=== PATIENT | male | born 1970 | race Caucasian/White ===

== ENCOUNTER 2020-01-26 17:08 | Inpatient (IN) | payer OTHER, MEDICAID, SELFPAY ==
[~2020-01-26] VITALS: Ht 182.9 cm; Wt 74.6 kg
[2020-01-26 17:41] VITALS: BP_SYST 148
[2020-01-26 18:21] LABS: BASOPHILS # (AUTO) 0.1 K/uL (0.0-0.2); BASOPHILS % (AUTO) 0.6 % (0.0-2.0); EOSINOPHILS # (AUTO) 0.3 K/uL (0.0-0.4); EOSINOPHILS % (AUTO) 3.7 % (0.0-4.0); HEMATOCRIT 36.3 % (36-54); HEMOGLOBIN 12.5 g/dL (14.0-18.0); LYMPHOCYTES # (AUTO) 2.3 K/uL (1.0-5.5); LYMPHOCYTES % (AUTO) 26.8 % (20.5-51.5); MEAN CORPUSCULAR HEMOGLOBIN 33 pg (27-31); MEAN CORPUSCULAR HGB CONC 35 % (32-36); MEAN CORPUSCULAR VOLUME 95 fL (79.0-98.0); MONOCYTES # (AUTO) 0.7 K/uL (0.0-1.0); MONOCYTES % (AUTO) 7.5 % (1.7-9.3); NEUTROPHILS # (AUTO) 5.4 K/uL (1.8-7.7); NEUTROPHILS % (AUTO) 61.4 % (40.0-70.0); PLATELET COUNT (AUTO) 199 K/uL (130-430); RED BLOOD CELL COUNT(AUTO) 3.84 MIL/uL (4.2-6.2); RED CELL DISTRIBUTION WIDTH 14.1 % (9.0-15.0); WHITE BLOOD COUNT (AUTO) 8.8 K/uL (4.8-10.8)
[2020-01-26 18:35] LABS: CALCIUM 8.2 mg/dL (8.4-11.0); CREATININE 0.76 mg/dL (0.55-1.30)
[2020-01-26 18:41] LABS: ALBUMIN 3.4 g/dL (3.4-4.8); TOTAL BILIRUBIN 0.5 mg/dL (0.0-1.0)
[2020-01-26] MEDS ORDERED: DIVA500T4 PO ×2 (18:57→18:58)
[2020-01-26] MEDS ORDERED: SYN50 PO (18:57)
[2020-01-26] MEDS ORDERED: AMLO5TAB4 PO (18:57)
[2020-01-26] MEDS ORDERED: LEVE500T9 PO (18:57)
[2020-01-26] MEDS ORDERED: LORA-259 PO (18:58)
[2020-01-26] MEDS ORDERED: LITH300T PO (18:58)
[2020-01-26] MEDS ORDERED: LORA-258 PO (18:58)
[2020-01-26] MEDS ORDERED: OLAN15TA18 PO (19:00)
[2020-01-26] MEDS ORDERED: OLAN10TA19 PO (19:00)
[2020-01-26] MEDS ORDERED: NACL 0.9% 1,000 ML IV ONE (19:00)
[2020-01-26] MEDS: NACL 0.9% 1,000 ML IV SCH (19:32)
[2020-01-26] MEDS ORDERED: MAGNESIUM SULFATE 50 ML IV PRN (20:00)
[2020-01-26] MEDS ORDERED: MUPIROCIN 2% TOPICAL OINTMENT 22 GM NS PRN (20:00)
[2020-01-26] MEDS ORDERED: POTASSIUM CHLORIDE 20 MEQ TAB.PRT.SR PO PRN (20:00)
[2020-01-26] MEDS ORDERED: ONDANSETRON HCL 4 MG/2 ML VIAL IVP PRN (20:00)
[2020-01-26] MEDS ORDERED: LORazepam 2 MG/ML VIAL IVP PRN (20:00)
[2020-01-26] MEDS ORDERED: DOCUSATE SODIUM 100 MG CAPSULE PO PRN (20:00)
[2020-01-26] MEDS ORDERED: ACETAMINOPHEN 325 MG TABLET PO PRN (20:00)
[2020-01-26] MEDS ORDERED: ZOLPIDEM TARTRATE 5 MG TABLET PO PRN (20:00)
[2020-01-26 20:45] VITALS: BP_SYST 141
[2020-01-26] MEDS: LITHIUM CARBONATE 300 MG TABLET.SA PO SCH (20:47)
[2020-01-26] MEDS: levETIRAcetam 500 MG TABLET PO SCH (20:47)
[2020-01-26] MEDS: OLANZapine 5 MG TABLET PO SCH (20:48)
[2020-01-26] MEDS: HEPARIN SODIUM,PORCINE 5,000 UNITS/ML VIAL SUBCUT SCH (20:51)
[2020-01-26 20:54] LABS: THYROID STIMULATING HORMONE 0.55 uIu/mL (0.34-4.82)
[2020-01-26] MEDS: DIVALPROEX SODIUM 500 MG TAB.SR.24H (DEPAKOTE ER) PO SCH (20:57)
[2020-01-26 22:17] LABS: BILIRUBIN,URINE NEGATIVE (NEGATIVE); BLOOD, URINE NEGATIVE (NEGATIVE); CLARITY/URINE CLEAR (CLEAR); COLOR,URINE YELLOW (YELLOW); GLUCOSE,URINE NEGATIVE (NEGATIVE); KETONES,URINE NEGATIVE (NEGATIVE); LEUKOCYTE ESTERASE ,URINE NEGATIVE (NEGATIVE); NITRITE, URINE NEGATIVE (NEGATIVE); PROTEIN URINE NEGATIVE (NEGATIVE); UROBILINOGEN,URINE 0.2 (0.2-1.0)
[2020-01-27] VITALS (7 sets, daily range): BP systolic 103–172
[2020-01-27] MEDS: NACL 0.9% 1,000 ML IV SCH (05:09)
[2020-01-27] MEDS: LEVOTHYROXINE SODIUM 0.05 MG TABLET PO SCH (06:06)
[2020-01-27 06:33] LABS: BASOPHILS # (AUTO) 0.1 K/uL (0.0-0.2); EOSINOPHILS # (AUTO) 0.2 K/uL (0.0-0.4); HEMATOCRIT 39.3 % (36-54); HEMOGLOBIN 13.3 g/dL (14.0-18.0); LYMPHOCYTES # (AUTO) 1.6 K/uL (1.0-5.5); LYMPHOCYTES % (AUTO) 30.2 % (20.5-51.5); MEAN CORPUSCULAR HEMOGLOBIN 33 pg (27-31); MEAN CORPUSCULAR HGB CONC 34 % (32-36); MEAN CORPUSCULAR VOLUME 96 fL (79.0-98.0); MONOCYTES # (AUTO) 0.6 K/uL (0.0-1.0); MONOCYTES % (AUTO) 12.1 % (1.7-9.3); NEUTROPHILS # (AUTO) 2.8 K/uL (1.8-7.7); NEUTROPHILS % (AUTO) 53.7 % (40.0-70.0); PLATELET COUNT (AUTO) 215 K/uL (130-430); RED BLOOD CELL COUNT(AUTO) 4.11 MIL/uL (4.2-6.2); RED CELL DISTRIBUTION WIDTH 14.2 % (9.0-15.0)
[2020-01-27 06:38] LABS: WHITE BLOOD COUNT (AUTO) 5.1 K/uL (4.8-10.8)
[2020-01-27 07:08] LABS: CALCIUM 8.3 mg/dL (8.4-11.0); CREATININE 0.74 mg/dL (0.55-1.30)
[2020-01-27] MEDS: LITHIUM CARBONATE 300 MG TABLET.SA PO SCH ×2 (08:52→20:53)
[2020-01-27] MEDS: levETIRAcetam 500 MG TABLET PO SCH ×2 (08:52→20:53)
[2020-01-27] MEDS: OLANZapine 10 MG TABLET PO SCH (08:52)
[2020-01-27] MEDS: amLODIPine BESYLATE 5 MG TABLET PO SCH (08:53)
[2020-01-27] MEDS: HEPARIN SODIUM,PORCINE 5,000 UNITS/ML VIAL SUBCUT SCH ×2 (08:57→20:54)
[2020-01-27] MEDS ORDERED: 0.45% NACL 1,000 ML IV SCH (11:15)
[2020-01-27 13:15] LABS: LITHIUM 0.5 mEq/L (0.50-1.0)
[2020-01-27] MEDS: DIVALPROEX SODIUM 500 MG TAB.SR.24H (DEPAKOTE ER) PO SCH (20:53)
[2020-01-27] MEDS: OLANZapine 5 MG TABLET PO SCH (20:53)
[2020-01-28] VITALS: BP_SYST 132
[2020-01-28] MEDS: LEVOTHYROXINE SODIUM 0.05 MG TABLET PO SCH (06:26)
[2020-01-28 06:40] LABS: BASOPHILS # (AUTO) 0.1 K/uL (0.0-0.2); EOSINOPHILS # (AUTO) 0.2 K/uL (0.0-0.4); EOSINOPHILS % (AUTO) 3.6 % (0.0-4.0); HEMATOCRIT 37.4 % (36-54); HEMOGLOBIN 12.7 g/dL (14.0-18.0); LYMPHOCYTES # (AUTO) 2.3 K/uL (1.0-5.5); LYMPHOCYTES % (AUTO) 33.3 % (20.5-51.5); MEAN CORPUSCULAR HEMOGLOBIN 33 pg (27-31); MEAN CORPUSCULAR HGB CONC 34 % (32-36); MEAN CORPUSCULAR VOLUME 96 fL (79.0-98.0); MONOCYTES # (AUTO) 0.5 K/uL (0.0-1.0); MONOCYTES % (AUTO) 7.9 % (1.7-9.3); NEUTROPHILS # (AUTO) 3.7 K/uL (1.8-7.7); NEUTROPHILS % (AUTO) 54.2 % (40.0-70.0); PLATELET COUNT (AUTO) 195 K/uL (130-430); RED BLOOD CELL COUNT(AUTO) 3.89 MIL/uL (4.2-6.2); RED CELL DISTRIBUTION WIDTH 14.4 % (9.0-15.0); WHITE BLOOD COUNT (AUTO) 6.9 K/uL (4.8-10.8)
[2020-01-28 06:46] LABS: CALCIUM 8.8 mg/dL (8.4-11.0); CREATININE 0.75 mg/dL (0.55-1.30); POTASSIUM 4.6 mmol/L (3.5-5.1)
[2020-01-28 08:25] VITALS: BP_SYST 155
[2020-01-28] MEDS: OLANZapine 10 MG TABLET PO SCH (08:54)
[2020-01-28] MEDS: LITHIUM CARBONATE 300 MG TABLET.SA PO SCH ×2 (08:54→20:56)
[2020-01-28] MEDS: levETIRAcetam 500 MG TABLET PO SCH ×2 (08:54→20:56)
[2020-01-28] MEDS: amLODIPine BESYLATE 5 MG TABLET PO SCH (08:55)
[2020-01-28] MEDS: HEPARIN SODIUM,PORCINE 5,000 UNITS/ML VIAL SUBCUT SCH ×2 (08:55→20:57)
[2020-01-28 12:19] VITALS: BP_SYST 131
[2020-01-28 16:22] VITALS: BP_SYST 129
[2020-01-28 20:00] VITALS: BP_SYST 119
[2020-01-28] MEDS: DIVALPROEX SODIUM 500 MG TAB.SR.24H (DEPAKOTE ER) PO SCH (20:56)
[2020-01-28] MEDS: OLANZapine 5 MG TABLET PO SCH (20:56)
[2020-01-29] VITALS: BP_SYST 116
[2020-01-29] MEDS: LEVOTHYROXINE SODIUM 0.05 MG TABLET PO SCH (06:07)
[2020-01-29 06:47] LABS: BASOPHILS # (AUTO) 0.1 K/uL (0.0-0.2); BASOPHILS % (AUTO) 0.8 % (0.0-2.0); EOSINOPHILS # (AUTO) 0.3 K/uL (0.0-0.4); EOSINOPHILS % (AUTO) 4.3 % (0.0-4.0); HEMATOCRIT 39.3 % (36-54); HEMOGLOBIN 13.1 g/dL (14.0-18.0); LYMPHOCYTES # (AUTO) 2.4 K/uL (1.0-5.5); MEAN CORPUSCULAR HEMOGLOBIN 32 pg (27-31); MEAN CORPUSCULAR HGB CONC 33 % (32-36); MEAN CORPUSCULAR VOLUME 96 fL (79.0-98.0); MONOCYTES # (AUTO) 0.5 K/uL (0.0-1.0); NEUTROPHILS # (AUTO) 3.9 K/uL (1.8-7.7); NEUTROPHILS % (AUTO) 54.9 % (40.0-70.0); PLATELET COUNT (AUTO) 203 K/uL (130-430); RED BLOOD CELL COUNT(AUTO) 4.07 MIL/uL (4.2-6.2); RED CELL DISTRIBUTION WIDTH 14.6 % (9.0-15.0); WHITE BLOOD COUNT (AUTO) 7.2 K/uL (4.8-10.8)
[2020-01-29 07:05] LABS: CALCIUM 8.9 mg/dL (8.4-11.0); CHLORIDE 103 mmol/L (98-107); CREATININE 0.74 mg/dL (0.55-1.30); GLUCOSE 80 mg/dL (70-99); SODIUM SERUM 135 mmol/L (136-145); UREA NITROGEN, BLOOD 11 mg/dL (8-21)
[2020-01-29 07:24] LABS: ANION GAP < 3 (5-15); GFR AFRICAN AMERICAN 144 mL/min (>90)
[2020-01-29 08:20] VITALS: BP_SYST 112
[2020-01-29] MEDS: levETIRAcetam 500 MG TABLET PO SCH ×2 (09:37→20:11)
[2020-01-29] MEDS: OLANZapine 10 MG TABLET PO SCH (09:38)
[2020-01-29] MEDS: amLODIPine BESYLATE 5 MG TABLET PO SCH (09:38)
[2020-01-29] MEDS: LITHIUM CARBONATE 300 MG TABLET.SA PO SCH ×2 (09:39→20:12)
[2020-01-29] MEDS: HEPARIN SODIUM,PORCINE 5,000 UNITS/ML VIAL SUBCUT SCH ×2 (09:41→20:13)
[2020-01-29 12:18] VITALS: BP_SYST 118
[2020-01-29 16:15] VITALS: BP_SYST 149
[2020-01-29 20:00] VITALS: BP_SYST 118
[2020-01-29] MEDS: DIVALPROEX SODIUM 500 MG TAB.SR.24H (DEPAKOTE ER) PO SCH (20:11)
[2020-01-29] MEDS: OLANZapine 5 MG TABLET PO SCH (20:15)
[2020-01-30 00:45] VITALS: BP_SYST 117
[2020-01-30] MEDS: LEVOTHYROXINE SODIUM 0.05 MG TABLET PO SCH (06:04)
[2020-01-30 07:07] LABS: BASOPHILS # (AUTO) 0.1 K/uL (0.0-0.2); EOSINOPHILS # (AUTO) 0.4 K/uL (0.0-0.4); EOSINOPHILS % (AUTO) 5.3 % (0.0-4.0); HEMATOCRIT 40.9 % (36-54); HEMOGLOBIN 13.8 g/dL (14.0-18.0); LYMPHOCYTES # (AUTO) 2.1 K/uL (1.0-5.5); LYMPHOCYTES % (AUTO) 27.7 % (20.5-51.5); MEAN CORPUSCULAR HEMOGLOBIN 32 pg (27-31); MEAN CORPUSCULAR HGB CONC 34 % (32-36); MEAN CORPUSCULAR VOLUME 96 fL (79.0-98.0); MONOCYTES # (AUTO) 0.6 K/uL (0.0-1.0); MONOCYTES % (AUTO) 7.3 % (1.7-9.3); NEUTROPHILS # (AUTO) 4.5 K/uL (1.8-7.7); NEUTROPHILS % (AUTO) 58.7 % (40.0-70.0); PLATELET COUNT (AUTO) 219 K/uL (130-430); RED BLOOD CELL COUNT(AUTO) 4.26 MIL/uL (4.2-6.2); RED CELL DISTRIBUTION WIDTH 14.4 % (9.0-15.0); WHITE BLOOD COUNT (AUTO) 7.7 K/uL (4.8-10.8)
[2020-01-30 08:10] VITALS: BP_SYST 117
[2020-01-30] MEDS: levETIRAcetam 500 MG TABLET PO SCH (08:48)
[2020-01-30] MEDS: LITHIUM CARBONATE 300 MG TABLET.SA PO SCH (08:48)
[2020-01-30] MEDS: OLANZapine 10 MG TABLET PO SCH (08:48)
[2020-01-30] MEDS: amLODIPine BESYLATE 5 MG TABLET PO SCH (08:49)
[2020-01-30] MEDS: HEPARIN SODIUM,PORCINE 5,000 UNITS/ML VIAL SUBCUT SCH (08:53)
[2020-01-30 09:20] LABS: CALCIUM 9.1 mg/dL (8.4-11.0); CREATININE 0.88 mg/dL (0.55-1.30)
[2020-01-30] MEDS ORDERED: SALT PO (10:37)
[2020-01-30 12:00] VITALS: BP_SYST 120; BP_SYST 126
[2020-01-30 14:20] VITALS: BP_SYST 126
[2020-01-30 15:54] VITALS: BP_SYST 121
== END 2020-01-30 19:30 | DRG 640 ==
LOC: SED 17:08 → STU 19:09
PROVIDERS: ADMIT General Practice; ATTEND General Practice
DX: E87.1 Hypo-osmolality and hyponatremia (principal); G93.41 Metabolic encephalopathy; F39 Unspecified mood [affective] disorder; E03.9 Hypothyroidism, unspecified; G40.909 Epilepsy, unspecified, not intractable, without status epilepticus; Z20.828 Contact with and (suspected) exposure to other viral communicable diseases; I10 Essential (primary) hypertension; Z59.0 Homelessness; F20.9 Schizophrenia, unspecified; Z88.2 Allergy status to sulfonamides; Z79.899 Other long term (current) drug therapy
CPT/HCPCS: 36415; 71045; 80048; 80053; 80164-TC; 80178-TC; 81003; 82533; 82550-TC; 83036; 83735-TC; 83880; 84443-TC; 84484; 85025; 87081; 93005; 96360; 99285; G0378; J1644; J7030

== ENCOUNTER 2020-12-07 23:49 | Emergency (ER) | payer OTHER, SELFPAY ==
[~2020-12-07] VITALS: Ht 182.9 cm; Wt 101.2 kg
[~2020-12-07 23:49] MED LIST: AMLO5TAB4 PO; DIVA500T4 PO; LEVE500T9 PO; LITH300T PO; LORA-258 PO; LORA-259 PO; OLAN10TA71 PO; OLAN15TA36 PO; SALT PO; SYN50 PO
[2020-12-07 23:56] VITALS: BP_SYST 138
--- NOTE | 2020-12-07 23:56 | NUR ---
Patient to [facility] for evaluation. Report given to JOANNA TOVAR
--- NOTE | 2020-12-08 | NUR ---
ER Dr. HENDRICKSON at bedside examining patient.
--- NOTE | 2020-12-08 | NUR ---
PATIENT SENT BY BLS FROM [facility] FOR MEDICAL CLEARANCE FOR PATIENT BEING AGGRESSIVE TO STAFF PRIOR TO GOING TO [facility] ROOM [id number]. AOX3. DENIES ANY PAIN.
--- NOTE | 2020-12-08 00:05 | NUR ---
BLOOD COLLECTED BY STOCK SPECULATOR
[2020-12-08 00:29] LABS: BASOPHILS # (AUTO) 0.1 K/uL (0.0-0.2); BASOPHILS % (AUTO) 0.6 % (0.0-2.0); EOSINOPHILS # (AUTO) 0.5 K/uL (0.0-0.4); EOSINOPHILS % (AUTO) 4.6 % (0.0-4.0); HEMATOCRIT 39.1 % (36-54); HEMOGLOBIN 13.6 g/dL (14.0-18.0); LYMPHOCYTES # (AUTO) 2.7 K/uL (1.0-5.5); LYMPHOCYTES % (AUTO) 26.1 % (20.5-51.5); MEAN CORPUSCULAR HEMOGLOBIN 33 pg (27-31); MEAN CORPUSCULAR HGB CONC 35 % (32-36); MEAN CORPUSCULAR VOLUME 94 fL (79.0-98.0); MONOCYTES % (AUTO) 9.9 % (1.7-9.3); NEUTROPHILS % (AUTO) 58.8 % (40.0-70.0); PLATELET COUNT (AUTO) 220 K/uL (130-430); RED BLOOD CELL COUNT(AUTO) 4.16 MIL/uL (4.2-6.2); RED CELL DISTRIBUTION WIDTH 13.1 % (9.0-15.0); WHITE BLOOD COUNT (AUTO) 10.2 K/uL (4.8-10.8)
--- NOTE | 2020-12-08 00:48 | NUR ---
URINE, COVID AND MRSA COLLECTED AND SENT TO LAB
[2020-12-08 01:01] LABS: POTASSIUM 4.2 mmol/L (3.5-5.1); SODIUM SERUM 128 mmol/L (136-145)
[2020-12-08 01:02] LABS: ALANINE AMINOTRANSFERASE 23 U/L (12-78); ALBUMIN 3.6 g/dL (3.4-4.8); ANION GAP 4 (5-15); ASPARTATE AMINOTRANSFERASE 9 U/L (10-37); CALCIUM 9.2 mg/dL (8.4-11.0); CHLORIDE 96 mmol/L (98-107); CREATININE 0.83 mg/dL (0.55-1.30); GFR AFRICAN AMERICAN 126 mL/min (>90); GLUCOSE 106 mg/dL (70-99); TOTAL BILIRUBIN 0.2 mg/dL (0.0-1.0); UREA NITROGEN, BLOOD 16 mg/dL (8-21)
[2020-12-08 01:11] LABS: BILIRUBIN,URINE NEGATIVE (NEGATIVE); BLOOD, URINE NEGATIVE (NEGATIVE); CLARITY/URINE CLEAR (CLEAR); COLOR,URINE YELLOW (YELLOW); GLUCOSE,URINE NEGATIVE (NEGATIVE); KETONES,URINE NEGATIVE (NEGATIVE); LEUKOCYTE ESTERASE ,URINE NEGATIVE (NEGATIVE); NITRITE, URINE NEGATIVE (NEGATIVE); PROTEIN URINE NEGATIVE (NEGATIVE); UROBILINOGEN,URINE 0.2 (0.2-1.0)
[2020-12-08 01:14] LABS: ACETAMINOPHEN 2 ug/mL (1-30); ALCOHOL, BLOOD < 3 mg/dL (<10)
[2020-12-08 01:26] LABS: BARBITURATE, URINE NEGATIVE (NEG <=200); BENZODIAZEPINE, URINE NEGATIVE (NEG <=150); CANNABINOID, URINE NEGATIVE (NEG <=50); COCAINE, URINE NEGATIVE (NEG <=150); METHAMPHETAMINES SCREEN,URINE NEGATIVE (NEG <=500); OPIATE, URINE NEGATIVE (NEG <=100); PHENCYCLIDINE SCREEN,URINE NEGATIVE (NEG <=25); UR TRICYCLIC ANTIDEPRESSANTS NEGATIVE (NEG <=300); URINE AMPHETAMINE NEGATIVE (NEG <=500); URINE METHADONE NEGATIVE (NEG <=200); URINE OXYCODONE SCREEN NEGATIVE (NEG <=100); URINE PROPOXYPHENE SCREEN NEGATIVE (NEG <=300)
[2020-12-08 01:37] LABS: CHOLESTEROL 181 mg/dL (<200); HDL CHOLESTEROL 50 mg/dL (>45); LDL CHOLESTEROL 105 mg/dL (<100); TRIGLYCERIDES 246 mg/dL (30-150)
--- NOTE | 2020-12-08 01:48 | NUR ---
CALLED REPORT TO JOANNA CHAUDHRY.
[2020-12-08] MEDS ORDERED: DIPHENHYDRAMINE HCL 50 MG CAPSULE PO ONE (02:30)
[2020-12-08 03:00] VITALS: BP_SYST 128
--- NOTE | 2020-12-08 03:00 | NUR ---
Patient given written and verbal discharge instructions and verbalizes understanding. ER MD discussed with patient the results and treatment provided. Patient in stable condition. ID arm band removed. No Rx given. Patient educated on pain management and to follow up with PMD. Pain Scale 0/10 Opportunity for questions provided and answered.
== END 2020-12-08 03:00 ==
LOC: SED 23:49
DX: F20.9 Schizophrenia, unspecified (principal); R25.1 Tremor, unspecified; I10 Essential (primary) hypertension; Z88.2 Allergy status to sulfonamides; Z79.899 Other long term (current) drug therapy; Z20.822 Contact with and (suspected) exposure to COVID-19
CPT/HCPCS: 36415; 80053; 80061; 80178; 80307; 81003; 83036; 85025; 87081; 87426; 99285; G0480; Q0163; G0481; G0482